=== PATIENT | male | born 1995 | race Caucasian/White ===

== ENCOUNTER 2018-12-09 20:39 | Emergency (ER) | payer MEDICAID, OTHER ==
[2018-12-09] MEDS: morphine 4 MG/ML VIAL IV (22:10)
[2018-12-09] MEDS ORDERED: LIDOCAINE 1% (MDV) 10 ML INJ INJ (23:17)
[2018-12-09] MEDS ORDERED: LIDOCAINE 1% (MDV) 20 ML INJ INJ (23:57)
== END 2018-12-10 00:47 | disposition home or self-care (01) ==
LOC: E/R 12-10 00:47
DX: S09.90XA Unspecified injury of head, initial encounter (principal); S40.022A Contusion of left upper arm, initial encounter; S80.212A Abrasion, left knee, initial encounter; S60.512A Abrasion of left hand, initial encounter; S51.012A Laceration without foreign body of left elbow, initial encounter; R40.2142 Coma scale, eyes open, spontaneous, at arrival to emergency department; R40.2252 Coma scale, best verbal response, oriented, at arrival to emergency department; R40.2362 Coma scale, best motor response, obeys commands, at arrival to emergency department; V18.5XXA Pedal cycle passenger injured in noncollision transport accident in traffic accident, initial encounter
CPT/HCPCS: 70450; 72125; 73080-LT; 73090; 73110-LT; 73562; 96374; 99285-25

== ENCOUNTER 2018-12-20 19:17 | Emergency (ER) | payer MEDICAID | END 2018-12-20 20:20 | disposition home or self-care (01) | LOC: FTE 20:20 | DX: Z48.02 Encounter for removal of sutures (principal) | CPT/HCPCS: 99281; Z7502 ==